=== PATIENT | female | born 1995 | race Caucasian/White ===

== ENCOUNTER 2017-06-13 01:35 | Emergency (ER) | payer MEDICAID ==
--- NOTE | 2017-06-13 02:31 | EDM.PDOC ---
ED HPI GENERAL MEDICAL PROBLEM - General Chief Complaint: Head Injury Stated Complaint: HIT HEAD Time Seen by Provider: 06/13/17 02:28 Source of Information: Reports: Patient History Limitations: Reports: No Limitations - History of Present Illness INITIAL COMMENTS - FREE TEXT/NARRATIVE: This patient comes in complaining of severe anxiety. She said they were traveling doing something with family and somehow she became really anxious because she didn't know how they're going to get back home. She said that just everything is going on and she just wants to all stop. She's not think about hurting herself or anybody else. She does see a counselor. Her history is limited because she speaks in such a feeble soft voice it's very difficult to understand her. She hit her head against a glass window which broke. 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) Other OB/BYN History: Has IUD Psychiatric History: Reports: Anxiety, Depression Social & Family History - Tobacco Use Smoking Status *Q: Current Every Day Smoker Years of Tobacco use: 3 Packs/Tins Daily: 0.2 Second Hand Smoke Exposure: Yes - Caffeine Use Caffeine Use: Reports: Coffee, Soda - Alcohol Use Days Per Week of Alcohol Use: 2 Number of Drinks Per Day: 2 Total Drinks Per Week: 4 - Recreational Drug Use Recreational Drug Use: No Recreational Drug Type: Reports: Marijuana/Hashish ED ROS GENERAL - Review of Systems Review Of Systems: Unable To Obtain ED EXAM, HEAD INJURY - Physical Exam Exam: See Below General Appearance: Alert, WD/WN, No Apparent Distress Head: Other (There is a very tiny bit of blood in the area of the right oriental orthodox but I can't find where the skin was broken.) Eyes: Bilateral Eye: Normal Inspection Throat/Mouth: Normal Inspection Neck: Full Range of Motion Respiratory: Lungs Clear Cardiovascular: Regular Rate, Rhythm GI/Abdominal Exam: Non-Tender Extremities: Normal Inspection Neurologic: No Motor/Sensory Deficits, Normal Mood/Affect, Other (She seems mildly anxious) Course - Vital Signs Last Recorded V/S: Last Vital Signs Temp 35.9 C 06/13/17 01:49 Pulse 73 06/13/17 01:49 Resp 12 06/13/17 01:49 BP 120/82 06/13/17 01:49 Pulse Ox 98 06/13/17 01:49 - Re-Assessments/Exams Free Text/Narrative Re-Assessment/Exam: 06/13/17 06:20 The wound to the right oriental orthodox was cleaned and there was no laceration found and there was no embedded glass Departure - Departure Time of Disposition: 02:29 Disposition: Home, Self-Care 01 Condition: Fair Clinical Impression: Anxiety - Discharge Information Instructions: Panic Attacks, [id number] Referrals: PCP,None [Primary Care Provider] - Forms: ED Department Discharge Additional Instructions: Take the medication lorazepam 1 mg, one half or one tablet 3 times a day or every 8 hours as needed for anxiety. Avoid alcohol or any other kind of sedating medication while taking lorazepam. Follow-up with your counselor on Friday. Your friend should be with you at all times in the meanwhile. Return to the ER at any time if needed
== END 2017-06-13 02:42 | disposition home or self-care (01) ==
LOC: JP.ED 01:35
DX: F41.9 Anxiety disorder, unspecified (principal); S09.90XA Unspecified injury of head, initial encounter; W25.XXXA Contact with sharp glass, initial encounter
CPT/HCPCS: 99283

== ENCOUNTER 2018-08-23 14:43 | Emergency (ER) | payer MEDICAID ==
--- NOTE | 2018-08-23 15:33 | EDM.PDOC ---
ED HPI GENERAL MEDICAL PROBLEM - General Chief Complaint: Back Pain or Injury Stated Complaint: FELL DOWN STAIRS, HURT BACK Time Seen by Provider: 08/23/18 15:10 Source of Information: Reports: Patient History Limitations: Reports: No Limitations - History of Present Illness Onset: Sudden (after fall on outside steps in rain last night at midnight) Location: Reports: Back (pain to lower back region) Right Back Pain Score (Numeric/FACES): 8 - Related Data Allergies Allergy/AdvReac Type Severity Reaction Status Date / Time No Known Allergies Allergy Verified 08/23/18 15:04 Home Meds: Home Meds NK [No Known Home Meds] 06/13/17 [History] Past Medical History - Past Health History Medical/Surgical History: Denies 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 Constitutional: Reports: No Symptoms Respiratory: Reports: No Symptoms Cardiovascular: Reports: No Symptoms Endocrine: Reports: No Symptoms Musculoskeletal: Reports: Back Pain (denies changes to bowel or bladder, gait changes or limitations to range of motion. ) Skin: Reports: No Symptoms Neurological: Reports: No Symptoms Psychiatric: Reports: No Symptoms ED EXAM,LOWER BACK PAIN/INJURY - Physical Exam Exam: See Below Exam Limited By: No Limitations General Appearance: Alert, WD/WN, No Apparent Distress Head: Atraumatic, Normocephalic Neck: Normal Inspection, Full Range of Motion (Female) Exam: Other (no flank pain. No blood in urine) Back Exam: Normal Inspection (no bony tenderness (paraspinal) pain or pain to ribs. No ecchymosis seen. No parasp) Extremities: Normal Inspection, Normal Range of Motion (straight leg test to 45 degrees bilaterally without sciatic pain. ), Non-Tender, No Pedal Edema Neurological: Alert, Normal Mood/Affect, Normal Dorsiflexion, Normal Gait, Oriented x 3 Psychiatric: Normal Affect, Normal Mood Skin Exam: Warm, Dry, Intact, Normal Color, No Rash, Ecchymosis (three ecchymotic areas to left lateral neck, denies hitting this area in fall. ) Course - Vital Signs Last Recorded V/S: Last Vital Signs Temp 36.1 C 08/23/18 15:03 Pulse 89 08/23/18 15:03 Resp 14 08/23/18 15:03 BP 132/78 08/23/18 15:03 Pulse Ox 99 08/23/18 15:03 Departure - Departure Time of Disposition: 15:34 Disposition: Home, Self-Care 01 Condition: Good Clinical Impression: Back pain - Discharge Information *PRESCRIPTION DRUG MONITORING PROGRAM REVIEWED*: No *COPY OF PRESCRIPTION DRUG MONITORING REPORT IN PATIENT TANMAY: No Instructions: Muscle Strain, [id number], Back Pain, Adult Referrals: PCP,None [Primary Care Provider] - Additional Instructions: Discussed with patient that injury is likely related to muscle strain. Instructed to apply heat for 10-15 minutes, then passively stretch back for 10 minutes then to apply cold to area a few times per day as well as take OTC analgesia. Discussed taking two Aleve in morning with breakfast and two at dinner for 5-7 days to effectively reduce swelling of area. To see own PCP if drastic changes in pain or if no marked improvement in next 3-4 days.
== END 2018-08-23 15:43 | disposition home or self-care (01) ==
LOC: JP.ED 14:43
DX: S10.93XA Contusion of unspecified part of neck, initial encounter (principal); M54.5 Low back pain; F17.210 Nicotine dependence, cigarettes, uncomplicated; W10.9XXA Fall (on) (from) unspecified stairs and steps, initial encounter
CPT/HCPCS: 99283

== ENCOUNTER 2018-11-24 23:31 | Emergency (ER) | payer MEDICAID, OTHER ==
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
== END 2018-11-25 00:42 | disposition home or self-care (01) ==
LOC: JP.ED 23:31
DX: F10.120 Alcohol abuse with intoxication, uncomplicated (principal); F17.210 Nicotine dependence, cigarettes, uncomplicated
CPT/HCPCS: 36415; 99282; 99284; G0480

== ENCOUNTER 2018-12-08 00:06 | Emergency (ER) | payer MEDICAID, OTHER ==
[2018-12-08] MEDS ORDERED: Sodium Chloride 0.9% 10 ML Syringe FLUSH PRN (00:13)
[2018-12-08] MEDS ORDERED: Lactated Ringers 1,000 ML IV SCH (00:15)
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
[2018-12-08 00:58] LABS: ACETAMINOPHEN < 2.0 ug/mL (10.0-30.0)
== END 2018-12-08 05:47 | disposition home or self-care (01) ==
LOC: JP.ED 00:06
DX: F10.220 Alcohol dependence with intoxication, uncomplicated (principal); Y90.8 Blood alcohol level of 240 mg/100 ml or more
CPT/HCPCS: 36415; 80053; 80305; 81001; 84703; 85025; 96360; 96361; 99283; G0480; J7120

== ENCOUNTER 2020-05-17 06:10 | Emergency (ER) | payer SELFPAY ==
--- NOTE | 2020-05-17 07:59 | EDM.PDOCBH ---
ED HPI GENERAL MEDICAL PROBLEM - General Chief Complaint: Drug or Alcohol Abuse Stated Complaint: NOT FEELING WELL Time Seen by Provider: 05/17/20 06:30 Source of Information: Reports: Patient, Family History Limitations: Reports: No Limitations - History of Present Illness INITIAL COMMENTS - FREE TEXT/NARRATIVE: 25-year-old female with chronic alcoholism, also a history of anxiety and depression who did have episodes of self-harm with superficial cutting in the past but none in the past year. She has been seen twice in the past 7 months for significant alcohol intoxication, one level being 0.508. She has drank for the last 2 weeks and for the past 24 hours has had several episodes of emesis, shaking, does not feel well and felt like she should get help. She asked her mom this morning to bring her in. She does not have any specific plans to hurt herself, however she does not feel like life is worth living at this time. She was on Prozac years ago, and has not had any type of formal counseling for the last several years. She is willing to get inpatient treatment and evaluation. 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 HEATER OPERATOR History: Has IUD Psychiatric History: Reports: Addiction, Anxiety, Depression Other Psychiatric History: Alcohol abuse Endocrine/Metabolic History: Reports: Obesity/BMI 30+ - Past Surgical History Head Surgeries/Procedures: Reports: None HEENT Surgical History: Reports: None Endocrine Surgical History: Reports: None Dermatological Surgical History: Reports: None Social & Family History - Tobacco Use Tobacco Use Status *Q: Current Every Day Tobacco User Years of Tobacco use: 8 Packs/Tins Daily: 0.5 Used Tobacco, but Quit: No Second Hand Smoke Exposure: Yes - Caffeine Use Caffeine Use: Reports: Soda - Alcohol Use Days Per Week of Alcohol Use: 7 Number of Drinks Per Day: 5 Total Drinks Per Week: 35 - Recreational Drug Use Recreational Drug Use: Yes Drug Use in Last 12 Months: Yes Recreational Drug Type: Reports: Marijuana/Hashish Recreational Drug Use Frequency: Daily ED ROS GENERAL - Review of Systems Review Of Systems: See Below Constitutional: Reports: Malaise, Decreased Appetite. Denies: Fever, Chills HEENT: Denies: Vision Change Respiratory: Denies: Shortness of Breath Cardiovascular: Denies: Chest Pain GI/Abdominal: Reports: Nausea, Vomiting. Denies: Abdominal Pain, Diarrhea : Reports: No Symptoms Musculoskeletal: Reports: Back Pain (Intermittent back pain, chronic) Skin: Reports: No Symptoms Neurological: Reports: Weakness. Denies: Headache Psychiatric: Reports: Anxiety, Depression ED EXAM, BEHAVIORAL HEALTH - Physical Exam Exam: See Below Exam Limited By: No Limitations General Appearance: Alert, No Apparent Distress Eye Exam: Bilateral Eye: Normal Inspection Head: Atraumatic Neck: Supple, Non-Tender Respiratory/Chest: Lungs Clear Cardiovascular: Regular Rate, Rhythm, Tachycardia Extremities: Other (Only abnormal finding on the extremities is very faint transverse superficial scars and scratches on the flexor surface of the right forearm and the posterior right leg) Neurological: Alert, No Motor/Sensory Deficits, Oriented x 3 Psychiatric: Alert, Depressed Mood, Flat Affect, Tearful, Other (Very poor eye contact, patient is very depressed) COURSE, BEHAVIORAL HEALTH COMP - Course Vital Signs: Last Vital Signs Temp 99 F 05/17/20 06:27 Pulse 106 H 05/17/20 09:30 Resp 16 05/17/20 09:30 BP 137/93 H 05/17/20 09:30 Pulse Ox 96 05/17/20 09:30 Orders, Labs, Meds: Laboratory Tests 05/17/20 05/17/20 05/17/20 Range/Units 07:14 07:16 07:16 WBC 7.9 (4.5-11.0) K/uL RBC 4.71 (3.30-5.50) M/uL Hgb 14.8 (12.0-15.0) g/dL Hct 45.3 (36.0-48.0) % MCV 96 (80-98) fL MCH 31 (27-31) pg MCHC 33 (32-36) % Plt Count 364 (150-400) K/uL Neut % (Auto) 76 H (36-66) % Lymph % (Auto) 17 L (24-44) % [place] % (Auto) 6 (2-6) % Eos % (Auto) 1 L (2-4) % Baso % (Auto) 1 (0-1) % Sodium 141 (140-148) mmol/L Potassium 3.7 (3.6-5.2) mmol/L Chloride 98 L (100-108) mmol/L Carbon Dioxide 21 (21-32) mmol/L Anion Gap 25.7 H (5.0-14.0) mmol/L BUN 7 D (7-18) mg/dL Creatinine 0.9 (0.6-1.0) mg/dL Est Cr Clr Drug Dosing 79.73 mL/min Estimated GFR (MDRD) > 60 (>60) Glucose 87 (74-106) mg/dL Calcium 9.6 (8.5-10.1) mg/dL Urine Opiates Screen Negative (NEGATIVE) Ur Oxycodone Screen Negative (NEGATIVE) Urine Methadone Screen Negative (NEGATIVE) Ur Propoxyphene Screen Negative (NEGATIVE) Ur Barbiturates Screen Negative (NEGATIVE) Ur Tricyclics Screen Negative (NEGATIVE) Ur Phencyclidine Scrn Negative (NEGATIVE) Ur Amphetamine Screen Negative (NEGATIVE) U Methamphetamines Scrn Negative (NEGATIVE) Urine MDMA Screen Negative (NEGATIVE) U Benzodiazepines Scrn Negative (NEGATIVE) U Cocaine Metab Screen Negative (NEGATIVE) U Marijuana (THC) Screen Presumptive positive H (NEGATIVE) Ethyl Alcohol mg/dL 05/17/20 Range/Units 07:16 WBC (4.5-11.0) K/uL RBC (3.30-5.50) M/uL Hgb (12.0-15.0) g/dL Hct (36.0-48.0) % MCV (80-98) fL MCH (27-31) pg MCHC (32-36) % Plt Count (150-400) K/uL Neut % (Auto) (36-66) % Lymph % (Auto) (24-44) % [place] % (Auto) (2-6) % Eos % (Auto) (2-4) % Baso % (Auto) (0-1) % Sodium (140-148) mmol/L Potassium (3.6-5.2) mmol/L Chloride (100-108) mmol/L Carbon Dioxide (21-32) mmol/L Anion Gap (5.0-14.0) mmol/L BUN (7-18) mg/dL Creatinine (0.6-1.0) mg/dL Est Cr Clr Drug Dosing mL/min Estimated GFR (MDRD) (>60) Glucose (74-106) mg/dL Calcium (8.5-10.1) mg/dL Urine Opiates Screen (NEGATIVE) Ur Oxycodone Screen (NEGATIVE) Urine Methadone Screen (NEGATIVE) Ur Propoxyphene Screen (NEGATIVE) Ur Barbiturates Screen (NEGATIVE) Ur Tricyclics Screen (NEGATIVE) Ur Phencyclidine Scrn (NEGATIVE) Ur Amphetamine Screen (NEGATIVE) U Methamphetamines Scrn (NEGATIVE) Urine MDMA Screen (NEGATIVE) U Benzodiazepines Scrn (NEGATIVE) U Cocaine Metab Screen (NEGATIVE) U Marijuana (THC) Screen (NEGATIVE) Ethyl Alcohol 85 mg/dL Medications Discontinued Medications Generic Name Dose Route Start Last Admin Trade Name Freq PRN Reason Stop Dose Admin Thiamine HCl 100 mg/ Folic 1,007.2 mls @ 999 mls/hr 05/17/20 08:30 05/17/20 08:21 Acid 1 mg/ Magnesium Sulfate 3 IV 05/17/20 09:30 999 mls/hr gm/ Sodium Chloride ONETIME ONE Administration Lorazepam 1 mg 05/17/20 09:08 Ativan IVPUSH 05/17/20 09:09 ONETIME ONE Multivitamins/Minerals 1 tab 05/17/20 08:30 05/17/20 08:31 Thera M Plus PO 05/17/20 08:31 1 tab ONETIME ONE Administration Ondansetron HCl 4 mg 05/17/20 08:27 05/17/20 08:31 Zofran IVPUSH 05/17/20 08:28 4 mg ONETIME ONE Administration Re-Assessment/Re-Exam: CBC, BMP and EtOH were obtained as well as urine drug screen. IV was started and the patient was given 1 L of banana bag while trying to find placement. I think she would be an excellent patient for inpatient evaluation of her [facility] due to her dual diagnosis. Urine drug screen is negative other than marijuana, current blood alcohol is 0.085. The rest of her labs are stable. Patient had some persistent nausea so 4 mg of IV Zofran were given. Patient unfortunately was not accepted at [facility] but was other at [place] for detox and then can be reevaluated. She was transferred to [place] by her mother. Departure - Departure Time of Disposition: 09:47 Disposition: DC/Tfer to Other 70 Clinical Impression: Alcohol abuse, Anxiety, Nausea and vomiting Alcohol intoxication Qualifiers: Complication of substance-induced condition: uncomplicated Qualified Code(s): F10.920 - Alcohol use, unspecified with intoxication, uncomplicated - Discharge Information Instructions: Alcohol Use Disorder Referrals: Kiya Bush DO [Primary Care Provider] - Forms: ED Department Discharge Care Plan Goals: Go directly to [place]. Sepsis Event Note (ED) - Evaluation Sepsis Screening Result: No Definite Risk - Focused Exam Vital Signs: Vital Signs Temp Pulse Resp BP Pulse Ox 05/17/20 09:30 106 H 16 137/93 H 96 05/17/20 08:26 112 H 18 131/94 H 95 05/17/20 07:32 115 H 18 157/103 H 96 05/17/20 06:27 99 F 132 H 20 157/100 H 94 L 05/17/20 06:26 99 F 132 H 20 157/100 H 94 L
[2020-05-17] MEDS ORDERED: MVI, Adult with Vitamin K 10 ML, Thiamine 100 MG, Folic Acid 1 MG, Magnesium Sulfate 3 ... IV SCH ×5 (08:00)
[2020-05-17] MEDS ORDERED: Ondansetron 4 MG/2 ML SDV IVPUSH ONE (08:27)
[2020-05-17] MEDS ORDERED: [UNRECOGNIZED DRUG - OTHER] IV ONE (08:30)
[2020-05-17] MEDS ORDERED: THIAMINE IV ONE (08:30)
[2020-05-17] MEDS ORDERED: Multivitamins with Iron/Calcium/Folic Acid/Minerals Tab PO ONE (08:30)
[2020-05-17] MEDS ORDERED: MAGNESIUM SULFATE IV ONE (08:30)
[2020-05-17] MEDS ORDERED: FOLIC ACID IV ONE (08:30)
[2020-05-17] MEDS ORDERED: LORazepam 2 MG/ML SDV IVPUSH ONE (09:08)
== END 2020-05-17 09:53 | disposition other institution (70) ==
LOC: JP.ED 06:10
DX: F10.120 Alcohol abuse with intoxication, uncomplicated (principal); F41.9 Anxiety disorder, unspecified; R11.2 Nausea with vomiting, unspecified; F17.210 Nicotine dependence, cigarettes, uncomplicated; E66.9 Obesity, unspecified; Z68.33 Body mass index [BMI] 33.0-33.9, adult; Y90.4 Blood alcohol level of 80-99 mg/100 ml
CPT/HCPCS: 36415; 80048; 80305; 80307; 85025; 96365; 96375; 99284; A9270; J2405; J3411; J3475; J7030; J3490

== ENCOUNTER 2022-01-18 22:01 | Emergency (ER) | payer SELFPAY | END 2022-01-18 23:44 | disposition home or self-care (01) | LOC: JP.ED 22:01 | DX: F10.10 Alcohol abuse, uncomplicated (principal); F17.210 Nicotine dependence, cigarettes, uncomplicated; E66.9 Obesity, unspecified; Z68.32 Body mass index [BMI] 32.0-32.9, adult | CPT/HCPCS: 99284 ==

== ENCOUNTER 2022-02-13 21:20 | Emergency (ER) | payer SELFPAY ==
[2022-02-13] MEDS ORDERED: Ondansetron 4 MG Tab.DIS PO ONE (21:55)
== END 2022-02-13 22:06 ==
LOC: JP.ED 21:20
DX: S00.83XA Contusion of other part of head, initial encounter (principal); F10.129 Alcohol abuse with intoxication, unspecified; F41.9 Anxiety disorder, unspecified; E66.9 Obesity, unspecified; Z68.34 Body mass index [BMI] 34.0-34.9, adult; Y04.0XXA Assault by unarmed brawl or fight, initial encounter
CPT/HCPCS: 99284

== ENCOUNTER 2022-07-05 15:51 | Emergency (ER) | payer MEDICAID | END 2022-07-05 17:51 | LOC: JP.ED 15:51 | DX: F10.920 Alcohol use, unspecified with intoxication, uncomplicated (principal); F17.210 Nicotine dependence, cigarettes, uncomplicated; E66.9 Obesity, unspecified; Z68.31 Body mass index [BMI] 31.0-31.9, adult; Y90.8 Blood alcohol level of 240 mg/100 ml or more | CPT/HCPCS: 36415; 80307; 99283 ==

== ENCOUNTER 2023-03-28 18:26 | Emergency (ER) | payer MEDICAID | END 2023-03-28 18:49 | LOC: JP.ED 18:26 | DX: O75.9 Complication of labor and delivery, unspecified (principal); O99.213 Obesity complicating pregnancy, third trimester; Z68.35 Body mass index [BMI] 35.0-35.9, adult; Z3A.38 38 weeks gestation of pregnancy | CPT/HCPCS: 99283; 99285 ==